=== PATIENT | female | born 1995 | race Caucasian/White ===

== ENCOUNTER 2020-02-07 14:31 | Emergency (ER) | payer BC ==
[~2020-02-07] VITALS: Ht 167.6 cm; Wt 99.8 kg
--- NOTE | 2020-02-07 14:40 | NUR ---
Dr. Jha at bedside for MSE
[2020-02-07] MEDS ORDERED: diphenhydrAMINE 50 MG/1 ML VIAL IM ONE (14:45)
[2020-02-07] MEDS ORDERED: diphenhydrAMINE 50 MG/1 ML VIAL ONE (14:49)
--- NOTE | 2020-02-07 14:56 | NUR ---
Patient discharged to home in stable condition. Written and verbal after care instructions given. Patient verbalizes understanding of instructions. Stressed follow up or return to ER for worsening s/s. Patient ambulated out of ER with steady gait. NAD noted. Patient's mother outside of ER to take patient home.
[2020-02-07 15:10] VITALS: BP 119/62
== END 2020-02-07 14:56 | disposition home or self-care (01) ==
LOC: ER 14:35
DX: L50.0 Allergic urticaria (principal); T36.0X5A Adverse effect of penicillins, initial encounter; Y92.89 Other specified places as the place of occurrence of the external cause
CPT/HCPCS: 96372; 99283; J1200; A4663

== ENCOUNTER 2020-02-08 00:04 | Emergency (ER) | payer BC ==
[~2020-02-08] VITALS: Ht 160 cm; Wt 102.7 kg
--- NOTE | 2020-02-08 00:15 | NUR ---
Dr Mitchell at bedside for MSE
[2020-02-08] MEDS ORDERED: CLINDAMYCIN HCL 150 MG CAPSULE PO ONE (00:30)
[2020-02-08] MEDS ORDERED: EPINEPHRINE 1 MG/1 ML AMP SQ ONE (00:30)
[2020-02-08] MEDS ORDERED: DEXAMETHASONE SOD PHOSPHATE 4 MG INJ IM ONE (00:30)
[2020-02-08] MEDS ORDERED: FAMOTIDINE 20 MG TABLET PO ONE (00:30)
[2020-02-08] MEDS ORDERED: diphenhydrAMINE 50 MG/1 ML VIAL IM ONE (00:30)
[2020-02-08] MEDS ORDERED: FAMOTIDINE 20 MG TABLET ONE (00:36)
[2020-02-08] MEDS ORDERED: EPINEPHRINE 1 MG/1 ML AMP ONE (00:36)
[2020-02-08] MEDS ORDERED: diphenhydrAMINE 50 MG/1 ML VIAL ONE (00:36)
[2020-02-08] MEDS ORDERED: DEXAMETHASONE SOD PHOSPHATE 4 MG INJ ONE (00:36)
[2020-02-08] MEDS ORDERED: CLINDAMYCIN HCL 300 MG CAPSULE ONE (00:36)
[2020-02-08] MEDS ORDERED: DEXAMETHASONE SOD PHOSPHATE 10 MG INJ ONE (00:36)
[2020-02-08] MEDS ORDERED: ONDANSETRON ODT 4 MG TAB.RAPDIS SL ONE (00:45)
[2020-02-08] MEDS ORDERED: ONDANSETRON 4 MG/2 ML VIAL IM ONE (00:45)
[2020-02-08] MEDS ORDERED: ONDANSETRON ODT 4 MG TAB.RAPDIS ONE (00:51)
--- NOTE | 2020-02-08 01:44 | NUR ---
Patient discharged to home in stable condition. Written and verbal after care instructions given. Patient verbalizes understanding of instructions. Stressed follow up or return to ER for worsening s/s. [id number]. able to speak in complete sentences no s/s of distress in stable condition ambulatory with steady gait pt's will drive pt home all belongings with pt
[2020-02-08 01:47] VITALS: BP 118/69
== END 2020-02-08 01:49 | disposition home or self-care (01) ==
LOC: ER 00:08
DX: L27.0 Generalized skin eruption due to drugs and medicaments taken internally (principal); L50.0 Allergic urticaria; T36.0X5A Adverse effect of penicillins, initial encounter; Y92.89 Other specified places as the place of occurrence of the external cause; J02.0 Streptococcal pharyngitis
CPT/HCPCS: 96372 ×2; 99284; J0171; J1100 ×2; J1200; A4663; Q0162